=== PATIENT | male | born 1935 | race Caucasian/White ===

== ENCOUNTER 2018-03-30 11:02 | Emergency (ER) | payer BC ==
[~2018-03-30] VITALS: Ht 182.9 cm; Wt 90.3 kg
[~2018-03-30 11:02] MED LIST: AMOCLA500 PO; ASPI81EC PO; Aspirin EC81 MG PO; CYCL10 PO; Ciloxan5 ML RIGHTEYE; DOXY100 PO; EQL FIRST AID A28 GM TOP; HYDR1TAB94 PO; IBUP800 PO; LATANOPROST2.5 ML OP; LISI20 PO; META800 PO; METF500 PO; METF850 PO; OXYACE5T PO; OXYACE7.5T PO; PRAV20 PO; Pravastatin Sod40 MG PO; Pred Forte1 ML; Prinivil10 MG PO; TERBINAFINE TAB 250; VALACYCLOVIR1000 MG PO; VIROPTIC RIGHTEYE
[2018-03-30] MEDS ORDERED: Artificial Tea1 EACH RIGHTEYE (11:38)
[2018-03-30] MEDS ORDERED: Neurontin 100100 MG PO (11:38)
[2018-03-30] MEDS ORDERED: Zovirax400 MG PO (11:38)
== END 2018-03-30 11:49 | disposition home or self-care (01) ==
LOC: ER 11:02
DX: B01 Varicella [chickenpox] (principal); B02.30 Zoster ocular disease, unspecified; Z79.899 Other long term (current) drug therapy; Z79.82 Long term (current) use of aspirin; Z79.84 Long term (current) use of oral hypoglycemic drugs
CPT/HCPCS: 99281

== ENCOUNTER 2019-01-13 12:02 | Emergency (ER) | payer BC ==
[~2019-01-13] VITALS: Ht 180.3 cm; Wt 91.6 kg
[~2019-01-13 12:02] MED LIST changes: +Artificial Tea1 EACH RIGHTEYE; +METF500C PO; +Neurontin 100100 MG PO; +Zovirax400 MG PO
[2019-01-13] MEDS ORDERED: Pravachol40 MG PO (12:10)
[2019-01-13] MEDS ORDERED: Prinivil10 MG PO (12:10)
[2019-01-13] MEDS ORDERED: METF500 PO (12:10)
[2019-01-13] MEDS ORDERED: GABA600 PO (12:11)
[2019-01-13 13:40] LABS: BASOPHILS ABSOLUTE AUTO 0.08 K/mm3 (0.00-0.23); BASOPHILS PERCENT AUTO 1 % (0-2); EOSINOPHILS ABSOLUTE AUTO 0.47 K/mm3 (0.00-0.68); EOSINOPHILS PERCENT AUTO 6 % (0-6); Hematocrit 46.5 % (37.0-53.0); Hemoglobin 15.6 g/dL (13.5-17.5); IMMATURE GRAN ABSOLUTE AUTO 0.02 K/mm3 (0.00-0.10); IMMATURE GRAN PERCENT AUTO 0 % (0-1); LYMPHOCYTES ABSOLUTE AUTO 2.17 K/mm3 (0.84-5.20); LYMPHOCYTES PERCENT AUTO 25 % (21-46); MONOCYTES PERCENT AUTO 9 % (4-13); Mean Corpuscular HGB 31.8 pg (26.0-34.0); Mean Corpuscular HGB Conc 33.5 g/dL (31.5-36.5); Mean Corpuscular Volume 95 fL (80-100); Mean Platelet Volume 10.1 fL (9.1-12.4); NEUTROPHILS ABSOLUTE AUTO 5.05 K/mm3 (1.96-9.15); NEUTROPHILS PERCENT AUTO 59 % (41-73); Platelet Count 225 K/mm3 (150-400); RDW Coefficient Variation 13.8 % (11.7-14.2); RDW Standard Deviation 48.5 fL (35.1-46.3); White Blood Cell Count 8.59 K/mm3 (4.00-11.30)
[2019-01-13 13:50] LABS: Source, Urine Clean Catch
[2019-01-13 13:55] LABS: Appearance, Urine Clear (Clear); Bilirubin, Urine Neg (Neg); Blood, Urine Neg (Neg); Color, Urine Yellow (P-Yellow); Glucose Qualitative, Urine Neg (Neg); Ketones, Urine Neg (Neg); Leukocyte Esterase, Urine Neg (Neg); Nitrite, Urine Neg (Neg); Protein, Urine 1+ (Neg); Specific Gravity, Urine 1.025 (1.003-1.022); Urobilinogen, Urine NORM (Normal)
[2019-01-13] MEDS ORDERED: Percocet 10-321 EACH PO (15:01)
[2019-04-12] MEDS ORDERED: METF500 PO (12:10)
[2019-04-12] MEDS ORDERED: LISI20 PO (12:10)
[2019-04-12] MEDS ORDERED: Aspirin EC81 MG PO (12:10)
== END 2019-01-13 15:43 | disposition home or self-care (01) ==
LOC: ER 12:02
PROVIDERS: Emergency Medicine
DX: S30.1XXA Contusion of abdominal wall, initial encounter (principal); E11.9 Type 2 diabetes mellitus without complications; I10 Essential (primary) hypertension; Z79.899 Other long term (current) drug therapy; W18.30XA Fall on same level, unspecified, initial encounter
CPT/HCPCS: 71046; 85025; 99284-25

== ENCOUNTER 2019-04-20 06:54 | Day surgery (SDC) | payer BC ==
[~2019-04-20] VITALS: Ht 180.3 cm; Wt 94.6 kg
[~2019-04-20 06:54] MED LIST changes: +GABA600 PO; +Percocet 10-321 EACH PO; +Pravachol40 MG PO
[2019-04-20] MEDS ORDERED: PRAVASTATIN SOD10 MG PO (08:03)
--- NOTE | 2019-04-20 08:18 | NUR ---
04/20/19 0818 Mackenzie Rucker PT HR DROPPED TO LOW [address] GIRALDO NOTIFIED. DR GIRALDO ORDERS [address] GIRALDO SHOWN [address] GIRALDO ORDERS 0.4 MG IV ROBINUL X1 IN PRE OP. DR GIRALDO SHOWN 3 LEAD AFTER ROBINUL GIVEN. PER DR. GIRALDO OK TO PROCEED WITH SURGERY. PT ADVISED TO FOLLOW UP WITH HIS PCP CONCERNING LOW HR. PT STATES AN UNDERSTANDING.
== END 2019-04-20 09:01 | disposition home or self-care (01) ==
LOC: ORSCSDS 06:54
PROVIDERS: Ophthalmology
PROC: 08RJ3JZ Replacement of Right Lens with Synthetic Substitute, Percutaneous Approach (ICD-10-PCS; principal; 2019-04-20 08:30)
DX: H25.11 Age-related nuclear cataract, right eye (principal); E11.9 Type 2 diabetes mellitus without complications; Z79.899 Other long term (current) drug therapy; Z79.82 Long term (current) use of aspirin
CPT/HCPCS: 82947; J2250; J3010; J3301; V2632

== ENCOUNTER 2022-09-09 12:11 | Inpatient (IN) | payer BC ==
[~2022-09-09] VITALS: Ht 180.3 cm; Wt 89.0 kg
[~2022-09-09 12:11] MED LIST changes: +GLUCOPHAGE1000 M1 PO
[2022-09-09 13:02] LABS: BASOPHILS ABSOLUTE AUTO 0.15 K/mm3 (0.00-0.23); BASOPHILS PERCENT AUTO 2 % (0-2); EOSINOPHILS ABSOLUTE AUTO 0.45 K/mm3 (0.00-0.68); EOSINOPHILS PERCENT AUTO 6 % (0-6); Hematocrit 45.8 % (37.0-53.0); Hemoglobin 15.8 g/dL (13.5-17.5); IMMATURE GRAN ABSOLUTE AUTO 0.01 K/mm3 (0.00-0.10); IMMATURE GRAN PERCENT AUTO 0 % (0-1); LYMPHOCYTES ABSOLUTE AUTO 2.53 K/mm3 (0.84-5.20); LYMPHOCYTES PERCENT AUTO 34 % (21-46); MONOCYTES PERCENT AUTO 11 % (4-13); Mean Corpuscular HGB 31.2 pg (26.0-34.0); Mean Corpuscular HGB Conc 34.5 g/dL (31.5-36.5); Mean Corpuscular Volume 90 fL (80-100); NEUTROPHILS ABSOLUTE AUTO 3.56 K/mm3 (1.96-9.15); NEUTROPHILS PERCENT AUTO 48 % (41-73); Platelet Count 251 K/mm3 (150-400); RDW Coefficient Variation 13.4 % (11.7-14.2); RDW Standard Deviation 44.5 fL (35.1-46.3); Red Blood Cell Count 5.07 M/mm3 (4.30-5.90)
[2022-09-09 13:19] LABS: Albumin, Blood 3.5 g/dL (3.4-5.0); Albumin/Globulin Ratio 0.9 (0.8-1.8); Bilirubin, Total 0.6 mg/dL (0.1-1.0); Bun/Creatinine Ratio 19.1 (12.0-20.0); Calcium, Blood 9.1 mg/dL (8.5-10.1); Creatinine, Blood 0.79 mg/dL (0.60-1.20); Globulin, Blood 3.8 g/dL (2.2-4.0); Potassium, Blood 3.7 mmol/L (3.5-5.5); Total Protein, Blood 7.3 g/dL (6.4-8.2)
[2022-09-09] MEDS ORDERED: Vitamin B-12100 MCG (13:31)
[2022-09-09] MEDS ORDERED: ERGO400 (13:31)
[2022-09-10 04:45] LABS: International Normalized Ratio 1.17; Prothrombin Time Results 12.2 Sec (9.7-11.5)
--- NOTE | 2022-09-10 06:05 | NUR ---
SHIFT SUMMARY PT IS A&OX4, IND IN HIS ROOM, HAS L.R. RUNNING AT 50ML/HR PER EMAR, SP02 >95% RA, AND HE HAS BEEN BRADYCARDIC 30'S-60'S W/ PVC'S T/O THE SHIFT. PT HAS BEEN NPO SINCE 0000 FOR A PACEMAKER PLACEMENT TODAY. AT THE BEGINNING OF THE SHIFT THE PT WAS HYPERTENSIVE AND HE STATED THAT HE USED TO TAKE LISINOPRIL 20MG DAILY, BUT HE STOPPED TAKING IT DUE TO "LOW BLOOD PRESSURES IN THE 100'S-110'S. PT DID NOT TALK TO HIS PRIMARY DR. ABOUT STOPPING THE MEDICATION. EDUCATION PROVIDED, AND DR. CORDOBA WAS CALLED. SHE RESSUMED THE MEDICATION W/ THE FIRST DOSE LAST NIGHT. PT'S BP HAS STABLED OUT SINCE TAKING THE MEDICATION. PT HAS NO COMPLAINTS, AND DENIES ANGINA, SOB, N/V/D, AND PAIN. HIS BED IS IN LOW, AND CALL LIGHT IS IN REACH. WILL CONTINUE TO MONITOR UNTIL SHIFT REPORT IS GIVEN TO THE ONCOMING SHIFT RN. SEE NOTES FOR MORE INFORMATION OR UPDATES.
--- NOTE | 2022-09-10 17:59 | NUR ---
SHIFT SUMMARY PT HAS BEEN RESTING QUIETLY IN ROOM THROUGHOUT THE DAY. PT WAS POLITE AND COOPERATIVE WITH ALL CARE. PT INDEPENDENTLY AMBULATED TO THE RESTROOM NEEDED. HEART RATE RANGED FROM 40-70'S PRIOR TO PACEMAKER PLACEMENT. PT DENIED ANY SYMPTOMS RELATED TO BRADYCARDIA. HEART RATE HAS REMAINED >60 AND TELEMETRY TRACINGS REVEAL INTERMITTENT PACING. ALL OTHER VITALS HAVE REMAINED STABLE, PT HAS DENIED ANY COMPLAINT OF PAIN OR DISCOMFORT.
[2022-09-11 04:15] LABS: BASOPHILS PERCENT AUTO 1 % (0-2); EOSINOPHILS ABSOLUTE AUTO 0.25 K/mm3 (0.00-0.68); EOSINOPHILS PERCENT AUTO 3 % (0-6); Hematocrit 44.9 % (37.0-53.0); Hemoglobin 15.5 g/dL (13.5-17.5); IMMATURE GRAN ABSOLUTE AUTO 0.02 K/mm3 (0.00-0.10); IMMATURE GRAN PERCENT AUTO 0 % (0-1); LYMPHOCYTES ABSOLUTE AUTO 1.52 K/mm3 (0.84-5.20); LYMPHOCYTES PERCENT AUTO 19 % (21-46); MONOCYTES ABSOLUTE AUTO 0.76 K/mm3 (0.16-1.47); MONOCYTES PERCENT AUTO 10 % (4-13); Mean Corpuscular HGB 30.9 pg (26.0-34.0); Mean Corpuscular HGB Conc 34.5 g/dL (31.5-36.5); Mean Corpuscular Volume 90 fL (80-100); Mean Platelet Volume 9.8 fL (9.1-12.4); NEUTROPHILS ABSOLUTE AUTO 5.22 K/mm3 (1.96-9.15); NEUTROPHILS PERCENT AUTO 66 % (41-73); Platelet Count 199 K/mm3 (150-400); RDW Coefficient Variation 13.4 % (11.7-14.2); RDW Standard Deviation 44.2 fL (35.1-46.3); Red Blood Cell Count 5.01 M/mm3 (4.30-5.90); White Blood Cell Count 7.87 K/mm3 (4.00-11.30)
--- NOTE | 2022-09-11 04:25 | NUR ---
SHIFT SUMMARY PT IS A&OX4, IND IN THE ROOM, SP02 >95% ON RA, AND HAS BEEN PACED IN THE 60'S THIS SHIFT. PT C/O SOME TENDERNESS ON LEFT CHEST WALL FROM THE PACEMAKER PLACEMENT ON 09/12/22, HE WAS MEDICATED WITH 650MG OF TYLONAL AND HAS BEEN ABLE TO REST MOST OF THE SHIFT. HE HAS A SLING ON HIS LEFT ARM TO HELP STABLIZE THE EXTREMITY AND PREVENT INJURY. NO ACUTE CHANGES OVERNIGHT. WILL CONTINUE TO MONITOR UNTIL SHIFT REPORT IS GIVEN TO THE ONCOMING JENNIFER RN. SEE NOTES FOR ANY UPDATES OR CHANGES.
[2022-09-11 04:49] LABS: Albumin, Blood 2.9 g/dL (3.4-5.0); Albumin/Globulin Ratio 0.8 (0.8-1.8); Bun/Creatinine Ratio 22.6 (12.0-20.0); Calcium, Blood 8.2 mg/dL (8.5-10.1); Creatinine, Blood 0.67 mg/dL (0.60-1.20); Globulin, Blood 3.7 g/dL (2.2-4.0); Potassium, Blood 3.5 mmol/L (3.5-5.5); Total Protein, Blood 6.6 g/dL (6.4-8.2)
[2022-09-11] MEDS ORDERED: LISI20 PO (09:56)
--- NOTE | 2022-09-11 10:25 | NUR ---
DISCHARGE SUMMARY PT WAS TRANSPORTED BY WHEELCHAIR TO A PERSONAL VEHICLE. ALL PERSONAL BELONGINGS AND DISCHARGE INSTRUCTIONS WERE IN THE PT'S POSSESSION AT THE TIME OF DISCHARGE. PT STATED AN UNDERSTANDING OF ALL INSTRUCTIONS.
== END 2022-09-11 10:27 | disposition home or self-care (01) | DRG 243 ==
LOC: ER 12:11 → PCU 12:12 → ER 12:12 → PCU 12:13 → ER 12:13 → PCU 12:13
PROVIDERS: Physician Assistant; ADMIT Hospitalist
PROC: 0JH606Z Insertion of Pacemaker, Dual Chamber into Chest Subcutaneous Tissue and Fascia, Open Approach (ICD-10-PCS; principal; 2022-09-10)
PROC: 02H63JZ Insertion of Pacemaker Lead into Right Atrium, Percutaneous Approach (ICD-10-PCS; 2022-09-10)
PROC: 02HK3JZ Insertion of Pacemaker Lead into Right Ventricle, Percutaneous Approach (ICD-10-PCS; 2022-09-10)
DX: I44.1 Atrioventricular block, second degree (principal); Q21.12 Patent foramen ovale; I10 Essential (primary) hypertension; E11.9 Type 2 diabetes mellitus without complications; E78.5 Hyperlipidemia, unspecified; I35.0 Nonrheumatic aortic (valve) stenosis; Z79.84 Long term (current) use of oral hypoglycemic drugs; Z79.899 Other long term (current) drug therapy
CPT/HCPCS: 33208; 36415; 71045; 71046; 76937; 80053; 82947; 83735; 83880; 85025; 85610; 93005; 93010; 93306; 99152; 99153; 99284-25; A9270; C1781; C1785; C1894; C1898; G0378; J0690; J1644; J2250; J3010; J7030; J7040; J7120

== ENCOUNTER 2022-10-29 08:07 | Day surgery (SDC) | payer BC ==
[~2022-10-29] VITALS: Ht 180.3 cm; Wt 89.2 kg
[~2022-10-29 08:07] MED LIST changes: +ERGO400; +Vitamin B-12100 MCG
== END 2022-10-29 10:40 | disposition home or self-care (01) ==
LOC: ORSCSDS 08:07
PROVIDERS: Ophthalmology
PROC: 08RK3JZ Replacement of Left Lens with Synthetic Substitute, Percutaneous Approach (ICD-10-PCS; principal; 2022-10-29 09:30)
DX: E11.36 Type 2 diabetes mellitus with diabetic cataract (principal); H25.12 Age-related nuclear cataract, left eye; I10 Essential (primary) hypertension; Z79.84 Long term (current) use of oral hypoglycemic drugs; Z79.899 Other long term (current) drug therapy; Z79.82 Long term (current) use of aspirin
CPT/HCPCS: 82947; J2001; J2250; J3010; J3301; J7040; V2632